=== PATIENT | male | born 1970 | race Caucasian/White ===

== ENCOUNTER 2017-05-25 15:57 | Emergency (ER) | payer BC ==
[2017-05-25 17:16] VITALS: BP 129/87
--- NOTE | 2017-05-25 17:43 | UC ---
Respiratory Complaint HPI - HPI Summary HPI Summary: 46M presents with cough for three weeks. He admits to sinus congestion but it has not change in past three weeks. He denies any chest pain or SOB. He denies any abdominal pain, n/v. He admits to fatigue. He denies any fever. and father had similar symptoms but they're went away and he states they were given antibiotics. He has no resp history. He has been trying all the OTC cough medication without relief. He denies any pain or swelling in calf muscles. - History of Current Complaint Chief Complaint: UCGeneralIllness Stated Complaint: COUGH Time Seen by Provider: 05/25/17 17:25 Pain Intensity: 0 - Allergies/Home Medications Allergies/Adverse Reactions: Allergies Allergy/AdvReac Type Severity Reaction Status Date / Time No Known Allergies Allergy Verified 05/25/17 17:16 PMH/Surg Hx/FS Hx/Imm Hx Endocrine History: Other Other Endocrine History: no DM Respiratory History: Other Other Respiratory History: no COPD - Surgical History Surgical History: None - Family History Known Family History: Positive: Hypertension - Social History Alcohol Use: None Substance Use Type: None Smoking Status (MU): Never Smoked Tobacco Review of Systems Constitutional: Negative ENT: Nasal Discharge Respiratory: Cough All Other Systems Reviewed And Are Negative: Yes Physical Exam Triage Information Reviewed: Yes Appearance: Well-Appearing Vital Signs: Initial Vital Signs Temp 99 F 05/25/17 17:03 Pulse 92 05/25/17 17:03 Resp 17 05/25/17 17:03 BP 129/87 05/25/17 17:03 Pulse Ox 99 05/25/17 17:03 Vital Signs Reviewed: Yes Eyes: Positive: Conjunctiva Clear ENT: Positive: Normal ENT inspection, Pharynx normal, Nasal drainage, TMs normal. Negative: Sinus tenderness Neck: Positive: Supple, Nontender, No Lymphadenopathy Respiratory: Positive: Lungs clear, Normal breath sounds, Other: - neg egophony Cardiovascular: Positive: RRR Abdomen Description: Positive: Nontender, Soft Bowel Sounds: Positive: Present Musculoskeletal Exam: Normal Neurological Exam: Normal Psychological Exam: Normal Skin Exam: Normal UC Diagnostic Evaluation - Laboratory O2 Sat by Pulse Oximetry: 99 Respiratory Course/Dx - Course Course Of Treatment: 46M presents with cough for three weeks. He admits to sinus congestion but it has not change in past three weeks. He denies any chest pain or SOB. He denies any abdominal pain, n/v. He admits to fatigue. He denies any fever. and father had similar symptoms but they're went away. He has no resp history. He has been trying all the OTC cough medication without relief. on exam lungs CTA. neg egophony.vitals stable. no sinus tenderness and he states he does not feel that has sinus infection. will treat with inhaler, prednisone, and tessalon. explained still viral at this point so antibiotics will not help. patient blood pressure in pre-htn range so will have follow up with primary. patient understand and agrees with plan. - Differential Dx/Diagnosis Differential Diagnosis/HQI/PQRI: Bronchitis, Influenza, Lower Resp Infection Provider Diagnoses: bronchitis Discharge - Discharge Plan Condition: Good Disposition: HOME Prescriptions: Albuterol HFA INHALER* [Ventolin HFA Inhaler*] 1 puff INH Q4H PRN #1 mdi PRN Reason: Cough Benzonatate CAP* [Tessalon 100 MG CAP*] 100 mg PO TID #21 cap predniSONE TAB* [Deltasone TAB*] 50 mg PO DAILY #5 tab Patient Education Materials: Acute Bronchitis (ED) Referrals: [facility] [place] [facility]ICIAN REFERRAL [Outside] Additional Instructions: Use Tessalon three times a day for cough Use inhaler one puff every 4 hours for cough as needed Take steroid once a day for 5 days Use saline in the nose for nasal congestion Use humidifier or place warm bowls of water around the room for cough Cough can last up to 6 weeks Follow up with primary care physician in 5 days Return to ED if develop any new or worsening symptoms
== END 2017-05-25 17:51 | disposition home or self-care (01) ==
LOC: UCCORT 15:57
DX: J40 Bronchitis, not specified as acute or chronic (principal)
CPT/HCPCS: 99212; G0463